=== PATIENT | male | born 1965 | race Caucasian/White ===

== ENCOUNTER → 2018-03-16 | Outpatient (CLI) | payer BC | LOC: CIMAGING 12:34 | PROVIDERS: ATTEND Family Medicine | DX: N45.1 Epididymitis (principal) | CPT/HCPCS: 76870-PO ==

== ENCOUNTER → 2018-06-14 | Outpatient (CLI) | payer BC ==
[~2018-06-14] MED LIST: GADOBUTROL 10 ML VIAL IVP ONE
== END ==
LOC: FIMAGING 15:35
PROVIDERS: ATTEND Psychiatry & Neurology Neurology
DX: R42 Dizziness and giddiness (principal)
CPT/HCPCS: A9585